=== PATIENT | female | born 1950 | race Caucasian/White ===

== ENCOUNTER → 2022-01-01 | Outpatient (REF) | payer SELFPAY ==
[2022-01-01 17:56] LABS: BASO # 0.1 10^3/uL (0.0-0.2); BASO % 1.2 % (0.0-1.0); EOS # 0.2 10^3/uL (0.0-0.5); EOS % 2.7 % (0.0-3.0); HEMATOCRIT 34.3 % (36.0-47.0); LYMPH # 3.3 10^3/uL (1.5-5.0); LYMPH % 37.8 % (24.0-44.0); MEAN CORPUSCULAR HEMOGLOBIN 23.4 pg (27.0-33.0); MEAN CORPUSCULAR HGB CONC 29.2 g/dl (32.0-36.5); MEAN CORPUSCULAR VOLUME 80.3 fl (80.0-96.0); MONO # 0.7 10^3/uL (0.0-0.8); MONO % 8.4 % (2.0-8.0); NEUTROPHILS # 4.4 10^3/uL (1.5-8.5); NEUTROPHILS % 49.7 % (36.0-66.0); PLATELET COUNT, AUTOMATED 223 10^3/uL (150-450); RED BLOOD COUNT 4.27 10^6/uL (4.00-5.40); WHITE BLOOD COUNT 8.8 10^3/uL (4.0-10.0)
[2022-01-01 19:17] LABS: ALBUMIN 3.6 GM/DL (3.2-5.2); ALT/SGPT 17 U/L (12-78); BILIRUBIN,TOTAL 0.6 MG/DL (0.2-1.0); BLOOD UREA NITROGEN 12 MG/DL (7-18); CALCIUM LEVEL 9.1 MG/DL (8.8-10.2); CARBON DIOXIDE LEVEL 25 MEQ/L (21-32); CHLORIDE LEVEL 108 MEQ/L (98-107); CREATININE FOR GFR 0.78 MG/DL (0.55-1.30); GLOMERULAR FILTRATION RATE > 60.0 (>39); GLUCOSE, FASTING 101 MG/DL (70-100); POTASSIUM SERUM 4.5 MEQ/L (3.5-5.1); RHEUMATOID FACTOR QUANT < 10.0 IU/ML (<15.0); SODIUM LEVEL 137 MEQ/L (136-145); TOTAL PROTEIN 6.9 GM/DL (6.4-8.2)
[2022-01-01 19:35] LABS: ERYTHROCYTE SEDIMENTATION RATE 15 mm/hr (0-30)
[2022-01-01 19:45] LABS: TOTAL 25(OH) VITAMIN D 26.6 NG/ML (30.0-100.0)
[2022-01-01 19:48] LABS: HEMOGLOBIN A1c 6.2 %
[2022-01-03 11:08] LABS: ANTINUCLEAR ANTIBODIES DIRECT Negative (Negative)
== END ==
LOC: M LABDRAWC 17:00
PROVIDERS: ATTEND Psychiatry & Neurology Neurology
DX: R51.9 Headache, unspecified (principal)

== ENCOUNTER 2023-09-29 14:26 | Outpatient (CLI) | payer MEDICARE, OTHER ==
[~2023-09-29] VITALS: Ht 170.2 cm; Wt 81.8 kg
[2023-09-29 15:05] VITALS: BP 123/59; O2SAT 95
[2023-09-29] MEDS: TEZEPELUMAB-EKKO 210MG 1.91ML SYRINGE (TEZSPIRE) SQ ONE (15:56)
[2023-09-29] MEDS ORDERED: CARV3.12 PO (17:24)
[2023-09-29] MEDS ORDERED: ROSU20TA61 PO (17:24)
[2023-09-29] MEDS ORDERED: NOVOINJ SC (17:24)
[2023-09-29] MEDS ORDERED: DIAZ5TAB PO (17:24)
[2023-09-29] MEDS ORDERED: PANT40TA29 PO (17:24)
[2023-09-29] MEDS ORDERED: NITR-67 PO (17:24)
[2023-09-29] MEDS ORDERED: CLOP75TA2 PO (17:24)
[2023-09-29] MEDS ORDERED: VENTAER INH (17:32)
[2023-09-29] MEDS ORDERED: ASPI81TA26 PO (17:32)
[2023-09-29] MEDS ORDERED: [UNRECOGNIZED DRUG - OTHER] INH (17:32)
[2023-09-29] MEDS ORDERED: AZEL0.05 OP (17:32)
[2023-09-29] MEDS ORDERED: [UNRECOGNIZED DRUG - OTHER] (17:32)
[2023-09-29] MEDS ORDERED: BENZ200C70 PO (17:32)
[2023-09-29] MEDS ORDERED: TRAZ-186 PO (17:32)
[2023-09-29] MEDS ORDERED: TEZE210P SQ (17:33)
[2023-09-29] MEDS ORDERED: LASI40TA9 PO (17:33)
[2023-09-29] MEDS ORDERED: POTA-151 PO (17:33)
[2023-09-29] MEDS ORDERED: ZYRTEC PO (17:36)
[2023-09-29] MEDS ORDERED: [UNRECOGNIZED DRUG - CODE] PO (17:36)
== END 2023-09-29 16:10 ==
LOC: M INFU 14:26
PROVIDERS: ATTEND Allergy & Immunology
DX: J45.50 Severe persistent asthma, uncomplicated (principal)
CPT/HCPCS: 96372; J2356

== ENCOUNTER 2023-10-27 14:46 | Outpatient (CLI) | payer MEDICARE, OTHER ==
[~2023-10-27] VITALS: Ht 170.2 cm; Wt 82.2 kg
[~2023-10-27 14:46] MED LIST: ASPI81TA26 PO; AZEL0.05 OP; BENZ200C70 PO; CARV3.12 PO; CLOP75TA2 PO; DIAZ5TAB PO; LASI40TA9 PO; NITR-67 PO; NOVOINJ SC; PANT40TA29 PO; POTA-151 PO; ROSU20TA61 PO; TEZE210P SQ; TRAZ-186 PO; VENTAER INH; ZYRTEC PO; [UNRECOGNIZED DRUG - CODE] PO; [UNRECOGNIZED DRUG - OTHER]; [UNRECOGNIZED DRUG - OTHER] INH
[2023-10-27] MEDS: TEZEPELUMAB-EKKO 210MG 1.91ML SYRINGE (TEZSPIRE) SQ ONE (14:58)
[2023-10-27 15:00] VITALS: BP 147/68; O2SAT 97
== END 2023-10-27 15:10 | disposition home or self-care (01) ==
LOC: M INFU 14:46
PROVIDERS: ATTEND Allergy & Immunology
DX: J45.50 Severe persistent asthma, uncomplicated (principal)
CPT/HCPCS: 96372; J2356

== ENCOUNTER 2023-11-24 15:25 | Outpatient (CLI) | payer MEDICARE, OTHER ==
[~2023-11-24] VITALS: Ht 170.2 cm; Wt 84.0 kg
[2023-11-24 15:30] VITALS: BP 138/76; O2SAT 96
[2023-11-24] MEDS: TEZEPELUMAB-EKKO 210MG 1.91ML SYRINGE (TEZSPIRE) SQ ONE (15:40)
== END 2023-11-24 15:50 ==
LOC: M INFU 15:25
PROVIDERS: ATTEND Allergy & Immunology
DX: J45.50 Severe persistent asthma, uncomplicated (principal)
CPT/HCPCS: 96372; J2356

== ENCOUNTER 2023-12-31 11:30 | Outpatient (CLI) | payer MEDICARE, OTHER ==
[~2023-12-31] VITALS: Ht 170.2 cm; Wt 80.5 kg
[2023-12-31 11:55] VITALS: BP 154/68; O2SAT 98
[2023-12-31] MEDS: TEZEPELUMAB-EKKO 210MG 1.91ML SYRINGE (TEZSPIRE) SQ ONE (12:07)
== END 2023-12-31 12:20 ==
LOC: M INFU 11:30
PROVIDERS: ATTEND Allergy & Immunology
DX: J45.50 Severe persistent asthma, uncomplicated (principal)
CPT/HCPCS: 96372; J2356

== ENCOUNTER 2024-01-28 10:20 | Outpatient (CLI) | payer MEDICARE, OTHER ==
[~2024-01-28] VITALS: Ht 170.2 cm; Wt 81.8 kg
[2024-01-28 10:20] VITALS: BP 117/75; O2SAT 97
[~2024-01-28 10:20] MED LIST changes: -ROSU20TA61 PO; +ROSU20TA86 PO
[2024-01-28] MEDS: TEZEPELUMAB-EKKO 210MG 1.91ML SYRINGE (TEZSPIRE) SQ ONE (10:27)
[2024-01-28 10:39] VITALS: BP 148/66; O2SAT 98
== END 2024-01-28 10:40 ==
LOC: M INFU 10:20
PROVIDERS: ATTEND Allergy & Immunology
DX: J45.50 Severe persistent asthma, uncomplicated (principal)
CPT/HCPCS: 96372; J2356